=== PATIENT | female | born 1975 | race Hispanic/Latino ===

== ENCOUNTER 2017-07-08 00:47 | Emergency (ER) | payer OTHER ==
[2017-07-08 01:34] LABS: BASOPHILS % (AUTO) 2.2 % (0.0-5.0); EOSINOPHILS % (AUTO) 9.5 % (0.0-8.0); HEMATOCRIT 41.2 % (36-48); LYMPHOCYTES % (AUTO) 20.2 % (21.0-51.0); MEAN CORPUSCULAR HEMOGLOBIN 29.4 pg (27.0-33.0); MEAN CORPUSCULAR HGB CONC 33.5 g/dL (32.0-36.0); MEAN CORPUSCULAR VOLUME 87.9 fL (79-99); MONOCYTES % (AUTO) 4.1 % (3.0-13.0); NUCLEATED RED BLOOD CELLS 0.1 % (0.0-0.19); PLATELET COUNT (AUTO) 221 K/uL (130-400); RED BLOOD CELL COUNT(AUTO) 4.69 MIL/uL (4.00-5.50); RED CELL DISTRIBUTION WIDTH 13.3 % (11.0-15.5); WHITE BLOOD COUNT (AUTO) 10.7 K/uL (4.8-10.8)
[2017-07-08 01:52] LABS: CREATININE 0.8 mg/dL (0.5-1.5); POTASSIUM 3.5 mmol/L (3.5-5.1)
[2017-07-08 01:56] LABS: ALBUMIN 3.5 g/dL (3.5-5.0); BILIRUBIN,TOTAL 0.2 mg/dL (0.2-1.0); TOTAL PROTEIN, SERUM 7.1 g/dL (6.0-8.3)
[2017-07-08 02:29] LABS: APPEARANCE,URINE Clear (CLEAR); BILIRUBIN,URINE Negative (NEGATIVE); COLOR,URINE Yellow (YELLOW); GLUCOSE, URINE (UA) Negative (NEGATIVE); KETONES,URINE Negative (NEGATIVE); LEUKOCYTE ESTERASE ,URINE Negative (NEGATIVE); NITRATE,URINE Negative (NEGATIVE); OCCULT BLOOD,URINE Negative (NEGATIVE); PH,URINE 6.5 (5.0-8.0); PROTEIN,URINE Negative (NEGATIVE); UROBILINOGEN,URINE 0.2 mg/dL (0.2-1.0)
[2017-07-08 02:30] LABS: HCG,QUAL RESULT NEGATIVE (NEGATIVE)
[2017-07-08] MEDS ORDERED: HYOSCYAMINE SULFATE 0.125 MG TAB.SUBL SL ONE (02:55)
== END 2017-07-08 03:40 | disposition home or self-care (01) ==
LOC: EDH 00:47
DX: R10.10 Upper abdominal pain, unspecified (principal); K59.00 Constipation, unspecified; R19.7 Diarrhea, unspecified; E11.9 Type 2 diabetes mellitus without complications; Z79.84 Long term (current) use of oral hypoglycemic drugs
CPT/HCPCS: 36415; 80053; 81003; 81025; 82150; 83690; 84484; 85025; 93005

== ENCOUNTER 2017-07-11 16:35 | Observation (INO) | payer OTHER ==
[~2017-07-11] VITALS: Ht 154.9 cm; Wt 83.0 kg
[2017-07-11 17:19] LABS: BASOPHILS % (AUTO) 0.7 % (0.0-5.0); EOSINOPHILS % (AUTO) 2.4 % (0.0-8.0); HEMATOCRIT 41.2 % (36-48); LYMPHOCYTES % (AUTO) 24.4 % (21.0-51.0); MEAN CORPUSCULAR HEMOGLOBIN 30.1 pg (27.0-33.0); MEAN CORPUSCULAR HGB CONC 34.4 g/dL (32.0-36.0); MEAN CORPUSCULAR VOLUME 87.3 fL (79-99); MONOCYTES % (AUTO) 4.9 % (3.0-13.0); NEUTROPHILS % (AUTO) 67.6 % (40.0-77.0); PLATELET COUNT (AUTO) 255 K/uL (130-400); RED BLOOD CELL COUNT(AUTO) 4.72 MIL/uL (4.00-5.50); RED CELL DISTRIBUTION WIDTH 12.9 % (11.0-15.5); WHITE BLOOD COUNT (AUTO) 8.4 K/uL (4.8-10.8)
[2017-07-11] MEDS ORDERED: IOPAMIDOL-370 75 ML VIAL IV ONE (17:22)
[2017-07-11 17:24] LABS: APPEARANCE,URINE Clear (CLEAR); BILIRUBIN,URINE Negative (NEGATIVE); COLOR,URINE Yellow (YELLOW); GLUCOSE, URINE (UA) Negative (NEGATIVE); HCG,QUAL RESULT NEGATIVE (NEGATIVE); KETONES,URINE 40 mg/dL (NEGATIVE); LEUKOCYTE ESTERASE ,URINE Negative (NEGATIVE); NITRATE,URINE Negative (NEGATIVE); OCCULT BLOOD,URINE Negative (NEGATIVE); PH,URINE 6.5 (5.0-8.0); PROTEIN,URINE Negative (NEGATIVE); UROBILINOGEN,URINE 0.2 mg/dL (0.2-1.0)
[2017-07-11 17:28] LABS: CREATININE 0.8 mg/dL (0.5-1.5); POTASSIUM 3.7 mmol/L (3.5-5.1)
[2017-07-11] MEDS ORDERED: SODIUM CHLORIDE 0.9% 1000ML 1,000 ML IV ONE (17:28)
[2017-07-11 17:33] LABS: ALBUMIN 3.5 g/dL (3.5-5.0); BILIRUBIN,TOTAL 0.2 mg/dL (0.2-1.0); TOTAL PROTEIN, SERUM 7.3 g/dL (6.0-8.3)
[2017-07-11 18:40] VITALS: BP 130/83
[2017-07-11] MEDS ORDERED: METF500T6 PO (18:45)
[2017-07-11] MEDS ORDERED: DIATR MEGLU/DIATRIZOATE SODIUM 30 ML BOTTLE ONE (18:53)
[2017-07-11] MEDS ORDERED: ONDANSETRON HCL MDV 20ML 2 MG/ML VIAL IVP PRN (19:00)
[2017-07-11] MEDS ORDERED: POTASSIUM CHLORIDE 20MEQ/100ML 100 ML IV PRN (19:00)
[2017-07-11] MEDS ORDERED: LIDOCAINE HCL-MPF 1% 2ML VIAL IJ PRN (19:00)
[2017-07-11] MEDS ORDERED: MORPHINE SULFATE 4 MG/1ML SYG IVP PRN (19:00)
[2017-07-11] MEDS ORDERED: POTASSIUM CHLORIDE 20 MEQ ERTAB PO PRN (19:00)
[2017-07-11] MEDS ORDERED: POTASSIUM CHLORIDE 10% ELIXIR 20 MEQ/15 ML UDCUP PO PRN (19:00)
[2017-07-11] MEDS ORDERED: DEXTROSE 50%-WATER 50 ML DISP.SYRIN IV PRN (19:15)
[2017-07-11] MEDS ORDERED: GLUCAGON 1MG KIT 1 MG ML IM PRN (19:15)
[2017-07-11] MEDS: INSULIN R PO SS1 SQ SCH (21:00)
[2017-07-11] MEDS ORDERED: BISACODYL 10 MG SUPP.RECT RC PRN (22:45)
[2017-07-11 23:56] VITALS: BP 117/74
[2017-07-12 04:23] VITALS: BP 110/70
[2017-07-12] MEDS: INSULIN R PO SS1 SQ SCH ×4 (06:59→21:00)
[2017-07-12 08:00] VITALS: BP 101/73
[2017-07-12] MEDS ORDERED: DIATR MEGLU/DIATRIZOATE SODIUM 30 ML BOTTLE ONE (08:59)
[2017-07-12 11:36] VITALS: BP 128/75
[2017-07-12 15:44] VITALS: BP 138/74
[2017-07-12 19:05] VITALS: BP 122/73
[2017-07-12] MEDS ORDERED: BISACODYL 5 MG TABLET.DR PO SCH (19:15)
[2017-07-12] MEDS: BISACODYL 5 MG TABLET.DR PO SCH (21:00)
[2017-07-12] MEDS: SUCRALFATE 1 GM/10 ML PO SCH (21:00)
[2017-07-12] MEDS: POLYETHYLENE GLYCOL 3350 17 GM POWD.PACK PO SCH (21:29)
[2017-07-12] MEDS: PANTOPRAZOLE SODIUM 40 MG TABLET.DR PO SCH (21:29)
[2017-07-13 00:02] VITALS: BP 142/79
[2017-07-13 04:05] VITALS: BP 119/73
[2017-07-13] MEDS: INSULIN R PO SS1 SQ SCH (06:13)
[2017-07-13 07:51] VITALS: BP 111/61
[2017-07-13] MEDS ORDERED: DIATR MEGLU/DIATRIZOATE SODIUM 30 ML BOTTLE ONE (08:32)
[2017-07-13] MEDS: SUCRALFATE 1 GM/10 ML PO SCH ×3 (09:00→11:41)
[2017-07-13] MEDS: POLYETHYLENE GLYCOL 3350 17 GM POWD.PACK PO SCH (11:21)
[2017-07-13] MEDS: BISACODYL 5 MG TABLET.DR PO SCH (11:31)
[2017-07-13] MEDS: PANTOPRAZOLE SODIUM 40 MG TABLET.DR PO SCH (11:31)
[2017-07-13 12:04] VITALS: BP 126/80
== END 2017-07-13 15:35 | disposition home or self-care (01) ==
LOC: EDH 16:35 → EDHIP 17:00 → 3CH 18:43
PROVIDERS: ADMIT Internal Medicine; ATTEND Internal Medicine
DX: R10.9 Unspecified abdominal pain (principal); K76.0 Fatty (change of) liver, not elsewhere classified; E11.9 Type 2 diabetes mellitus without complications; K59.00 Constipation, unspecified; Z80.9 Family history of malignant neoplasm, unspecified
CPT/HCPCS: 36415; 74177; 74250 ×2; 76700; 80053; 81003; 81025; 82150; 82948 ×7; 83690; 85025; 99285; G0378 ×47; J7030; Q9963 ×2; Q9967